=== PATIENT | female | born 1930 | race Caucasian/White ===

== ENCOUNTER 2019-03-08 12:40 | Inpatient (IN) ==
[2019-03-08] MEDS ORDERED: ACETAMINOPHEN 325 MG TABLET PO PRN (12:43)
[2019-03-08] MEDS ORDERED: ZALEPLON 5 MG CAPSULE PO PRN (12:43)
[2019-03-08] MEDS ORDERED: ONDANSETRON 4 MG/2 ML VIAL IV PRN (12:43)
[2019-03-08 14:50] LABS: Basophils # 0.1 10*3/uL (0.0-0.2); Basophils % 0.7 % (0.0-0.8); Eosinophils # 0.6 10*3/uL (0.0-0.87); Hematocrit 35.9 VOL% (35.7-47.0); Hemoglobin 11.4 GM/DL (12.0-16.0); Immature Granulocytes % 0.5 %; Immature Granulocytes Absolute 0.05 #; Lymphocytes # 1.3 10*3/uL (1.4-4.0); Lymphocytes % 12.8 % (21.3-54.2); Mean Corpuscular HGB Conc 31.8 GM/DL (32-36); Mean Corpuscular Volume 88.6 FL (87-102); Mean Platelet Volume 10.7 FL (9.6-12.0); Monocytes % 9.2 % (1.7-12.7); Neutrophils % 70.8 % (38.7-73.9); Platelet Count 185 T/CUMM (130-400); Red Blood Count 4.05 MC/CUMM (3.8-5.5); Red Cell Distribution Width 13.2 % (9.3-17.3)
[2019-03-08 15:02] LABS: Calcium 9.4 MG/DL (8.5-10.1); Osmolality,Calculated 282.5 MOS/KG (273-304)
[2019-03-08 15:13] LABS: Thyroid Stimulating Hormone 1.71 uIU/ml (0.358-3.74)
[2019-03-08] MEDS ORDERED: IBUPROFEN 800 MG TABLET PO PRN (15:59)
[2019-03-08] MEDS ORDERED: ENOXAPARIN 60 MG/0.6 ML SYRINGE SUBCUT ONE (16:05)
[2019-03-08 17:00] LABS: Apearance,Urine Slightly Hazy (Clear); Bacteria,Urine Occasional /HPF (Few); Bilirubin,Urine Negative (Negative); Blood, Urine Small mg/dL (Negative); Glucose,Urine (UA) Negative (Negative); Hyaline Casts,Urine 6 /LPF (0-3); Ketones,Urine Negative (Negative); Mucus,Urine Occasional /LPF (Occasional); Nitrite,Urine Positive (Negative); Protein,Urine Negative; RBC,Urine 2 /HPF (0-4); Squamous Epithelial Cell,Urine Occasional /HPF (0-10); Urine Color Yellow (Yellow); Urine Specific Gravity 1.012 (1.001-1.035); Urine Urobilinogen < 2.0 EU/DL (0.2-1.0); WBC,Urine 25 /HPF (0-6)
[2019-03-08] MEDS: SODIUM CHLORIDE 0.9% 1,000 ML IV SCH (17:17)
[2019-03-08] MEDS ORDERED: hydrALAZINE 20 MG/1 ML VIAL IV PRN (21:29)
[2019-03-08] MEDS: LEVOFLOXACIN 250 MG TABLET PO SCH (21:44)
[2019-03-08] MEDS: DOCUSATE SODIUM 100 MG CAPSULE PO PRN (21:44)
[2019-03-09] MEDS: SODIUM CHLORIDE 0.9% 1,000 ML IV SCH (03:25)
[2019-03-09 03:53] LABS: Basophils # 0.1 10*3/uL (0.0-0.2); Basophils % 0.7 % (0.0-0.8); Eosinophils # 0.4 10*3/uL (0.0-0.87); Eosinophils % 4.3 % (0.00-10.9); Hematocrit 36.9 VOL% (35.7-47.0); Immature Granulocytes % 0.4 %; Immature Granulocytes Absolute 0.04 #; Lymphocytes # 0.8 10*3/uL (1.4-4.0); Lymphocytes % 7.7 % (21.3-54.2); Mean Corpuscular HGB Conc 32.5 GM/DL (32-36); Mean Corpuscular Volume 86.8 FL (87-102); Mean Platelet Volume 10.8 FL (9.6-12.0); Monocytes % 7.5 % (1.7-12.7); Neutrophils % 79.4 % (38.7-73.9); Platelet Count 155 T/CUMM (130-400); Red Blood Count 4.25 MC/CUMM (3.8-5.5); Red Cell Distribution Width 13.2 % (9.3-17.3); White Blood Count 10.1 T/CUMM (4-12)
[2019-03-09 04:15] LABS: Calcium 9.3 MG/DL (8.5-10.1); Osmolality,Calculated 279.5 MOS/KG (273-304)
[2019-03-09] MEDS: MULTIVITAMIN (CENTRUM) TABLET PO SCH (08:53)
[2019-03-09] MEDS: ASPIRIN CHEW 81 MG TABLET PO SCH (08:53)
[2019-03-09] MEDS: OXYBUTYNIN 5 MG TABLET PO SCH (08:53)
[2019-03-09] MEDS: DOCUSATE SODIUM 100 MG CAPSULE PO PRN (08:53)
[2019-03-09] MEDS: PANTOPRAZOLE 40 MG TABLET PO SCH (08:54)
[2019-03-09] MEDS: ISOSORBIDE MONONITRATE 30 MG TABLET PO SCH (08:54)
[2019-03-09] MEDS: METOPROLOL SUCCINATE XL 25 MG TABLET PO SCH (08:54)
[2019-03-09] MEDS ORDERED: ALBUTEROL/IPRATROPIUM 3 ML NEB RESP TX PRN (09:53)
[2019-03-09] MEDS ORDERED: TUBERCULIN SKIN TEST 0.1 ML SYRINGE INTRADERM ONE (15:32)
[2019-03-09] MEDS: LEVOFLOXACIN 250 MG TABLET PO SCH (20:31)
[2019-03-10] MEDS ORDERED: LACTULOSE 20 GM/30 ML UDCUP PO PRN (07:40)
[2019-03-10] MEDS: ALBUTEROL/IPRATROPIUM 3 ML NEB RESP TX SCH ×5 (08:40→22:30)
[2019-03-10] MEDS ORDERED: MAGNESIUM SULF RIDER 2 GM in PREMIX 1 EACH IV ONE (08:47)
[2019-03-10] MEDS ORDERED: TISSUE ADHESIVE 1 EACH APPLICATOR TOP ONE (09:03)
[2019-03-10] MEDS ORDERED: LIDOCAINE 1%/EPI INJ 20 ML VIAL ONE (09:03)
[2019-03-10] MEDS: ASPIRIN CHEW 81 MG TABLET PO SCH (09:14)
[2019-03-10] MEDS: MULTIVITAMIN (CENTRUM) TABLET PO SCH (09:14)
[2019-03-10] MEDS: METOPROLOL SUCCINATE XL 25 MG TABLET PO SCH (09:14)
[2019-03-10] MEDS: ISOSORBIDE MONONITRATE 30 MG TABLET PO SCH (09:14)
[2019-03-10] MEDS: OXYBUTYNIN 5 MG TABLET PO SCH (09:14)
[2019-03-10] MEDS: PANTOPRAZOLE 40 MG TABLET PO SCH (09:14)
[2019-03-10] MEDS: POLYETHYLENE GLYCOL POWDER 17 GM PACK PO SCH (11:04)
[2019-03-10] MEDS: AMOXICILLIN/CLAV 500 MG TABLET PO SCH ×2 (14:59→22:08)
[2019-03-11] MEDS: ALBUTEROL/IPRATROPIUM 3 ML NEB RESP TX SCH ×3 (02:35→10:55)
[2019-03-11 05:58] LABS: Calcium 9.2 MG/DL (8.5-10.1); Osmolality,Calculated 282.7 MOS/KG (273-304)
[2019-03-11 08:05] VITALS: BP 142/74
[2019-03-11] MEDS ORDERED: AMPICILLIN 500 MG CAPSULE PO SCH (09:00)
[2019-03-11] MEDS: AMOXICILLIN/CLAV 500 MG TABLET PO SCH (09:27)
[2019-03-11] MEDS: OXYBUTYNIN 5 MG TABLET PO SCH (09:33)
[2019-03-11] MEDS: ISOSORBIDE MONONITRATE 30 MG TABLET PO SCH (09:33)
[2019-03-11] MEDS: PANTOPRAZOLE 40 MG TABLET PO SCH (09:33)
[2019-03-11] MEDS: ASPIRIN CHEW 81 MG TABLET PO SCH (09:33)
[2019-03-11] MEDS: METOPROLOL SUCCINATE XL 25 MG TABLET PO SCH (09:33)
[2019-03-11] MEDS: POLYETHYLENE GLYCOL POWDER 17 GM PACK PO SCH (09:33)
[2019-03-11] MEDS: MULTIVITAMIN (CENTRUM) TABLET PO SCH (09:33)
== END 2019-03-11 11:23 | DRG 261 ==
LOC: N.TELEN 13:47
PROVIDERS: ADMIT Internal Medicine Cardiovascular Disease; ATTEND Internal Medicine Cardiovascular Disease

== ENCOUNTER 2020-09-04 08:37 | Inpatient (IN) ==
[2020-09-04 10:02] LABS: Basophils % 0.1 % (0.0-0.8); Eosinophils # 0.1 10*3/uL (0.0-0.87); Eosinophils % 0.8 % (0.00-10.9); Hematocrit 29.7 VOL% (35.7-47.0); Hemoglobin 9.2 GM/DL (12.0-16.0); Immature Granulocytes % 1.1 %; Immature Granulocytes Absolute 0.19 #; Lymphocytes # 1.3 10*3/uL (1.4-4.0); Lymphocytes % 7.9 % (21.3-54.2); Mean Corpuscular Volume 78.6 FL (87-102); Mean Platelet Volume 9.6 FL (9.6-12.0); Monocytes % 8.1 % (1.7-12.7); Platelet Count 318 T/CUMM (130-400); Red Blood Count 3.78 MC/CUMM (3.8-5.5); Red Cell Distribution Width 15.8 % (9.3-17.3); White Blood Count 16.8 T/CUMM (4-12)
[2020-09-04] MEDS ORDERED: FAMOTIDINE 20 MG/2 ML VIAL IV STA (10:06)
[2020-09-04] MEDS ORDERED: DEXAMETHASONE 4 MG/1 ML VIAL IV STA (10:06)
[2020-09-04] MEDS ORDERED: AZITHROMYCIN INJ 500 MG in SODIUM CHLORIDE 0.9% 250 ML IV STA ×2 (10:06→10:28)
[2020-09-04] MEDS ORDERED: CETIRIZINE 10 MG TABLET PO STA (10:06)
[2020-09-04 10:12] LABS: INR 1.2; PT Patient Result 12.3 SECS (9.8-11.9); Partial Thromboplastin Time 22.5 SECS (23.9-33.8)
[2020-09-04 10:29] LABS: Albumin 2.5 G/DL (3.4-5.0); Bilirubin,Total 0.8 MG/DL (0.2-1.0); Calcium 9.2 MG/DL (8.5-10.1); Osmolality,Calculated 282.7 MOS/KG (273-304); Potassium 4.1 MMOL/L (3.5-5.1); Total Protein 5.8 G/DL (6.4-8.3)
[2020-09-04] MEDS ORDERED: MELATONIN 3 MG TABLET PO PRN (11:03)
[2020-09-04] MEDS ORDERED: guaiFENesin/DM ER 600-30 MG TABLET PO PRN (11:06)
[2020-09-04] MEDS ORDERED: CALCIUM CARBONATE CHEW 500 MG TABLET PO PRN (11:06)
[2020-09-04] MEDS ORDERED: GLUCAGON 1 MG VIAL IM PRN (11:06)
[2020-09-04] MEDS ORDERED: BISACODYL 5 MG TABLET PO PRN (11:06)
[2020-09-04] MEDS ORDERED: ONDANSETRON 4 MG/2 ML VIAL IV PRN (11:06)
[2020-09-04] MEDS ORDERED: hydrALAZINE 20 MG/1 ML VIAL IV PRN (11:06)
[2020-09-04] MEDS ORDERED: DEXTROSE 50% 25 GM/50 ML VIAL IV PRN (11:06)
[2020-09-04] MEDS ORDERED: SIMETHICONE CHEW 125 MG TABLET PO PRN (11:06)
[2020-09-04] MEDS ORDERED: guaiFENesin 200 MG/10 ML UDCUP PO PRN (15:46)
[2020-09-04] MEDS ORDERED: SODIUM CHLORIDE 0.9% 100 ML IV ONE (16:14)
[2020-09-04] MEDS: cefTRIAXone 1,000 MG in SYRINGE 1 EACH IV SCH (16:32)
[2020-09-04] MEDS: ENOXAPARIN 40 MG/0.4 ML SYRINGE SUBCUT SCH (21:23)
[2020-09-04] MEDS: RANOLAZINE 500 MG TABLET PO SCH (21:23)
[2020-09-04] MEDS: FAMOTIDINE 20 MG TABLET PO SCH (21:23)
[2020-09-05 06:03] LABS: Basophils % 0.2 % (0.0-0.8); Eosinophils # 0.1 10*3/uL (0.0-0.87); Eosinophils % 1.1 % (0.00-10.9); Hematocrit 29.3 VOL% (35.7-47.0); Hemoglobin 9.1 GM/DL (12.0-16.0); Immature Granulocytes % 0.9 %; Immature Granulocytes Absolute 0.12 #; Lymphocytes # 0.9 10*3/uL (1.4-4.0); Lymphocytes % 7.4 % (21.3-54.2); Mean Corpuscular HGB Conc 31.1 GM/DL (32-36); Mean Corpuscular Volume 77.9 FL (87-102); Mean Platelet Volume 9.8 FL (9.6-12.0); Monocytes % 9.3 % (1.7-12.7); Neutrophils % 81.1 % (38.7-73.9); Platelet Count 283 T/CUMM (130-400); Red Blood Count 3.76 MC/CUMM (3.8-5.5); Red Cell Distribution Width 15.9 % (9.3-17.3); White Blood Count 12.7 T/CUMM (4-12)
[2020-09-05 06:29] LABS: Thyroid Stimulating Hormone 0.972 uIU/ml (0.358-3.74)
[2020-09-05] MEDS: OXYBUTYNIN 5 MG TABLET PO SCH (08:47)
[2020-09-05] MEDS: ISOSORBIDE MONONITRATE 60 MG TABLET PO SCH (08:47)
[2020-09-05] MEDS: ASPIRIN CHEW 81 MG TABLET PO SCH (08:47)
[2020-09-05] MEDS: RANOLAZINE 500 MG TABLET PO SCH ×2 (08:47→21:49)
[2020-09-05] MEDS: SENNA 8.6 MG TABLET PO SCH (08:48)
[2020-09-05] MEDS: DEXAMETHASONE 4 MG/1 ML VIAL IV SCH (08:48)
[2020-09-05] MEDS: AZITHROMYCIN 250 MG TABLET PO SCH (08:48)
[2020-09-05] MEDS: ZINC GLUCONATE 50 MG TABLET PO SCH (10:20)
[2020-09-05] MEDS: FAMOTIDINE 20 MG TABLET PO SCH ×2 (10:20→21:49)
[2020-09-05] MEDS: cefTRIAXone 1,000 MG in SYRINGE 1 EACH IV SCH (16:04)
[2020-09-05] MEDS: ENOXAPARIN 40 MG/0.4 ML SYRINGE SUBCUT SCH (21:48)
[2020-09-06 05:25] LABS: Basophils % 0.1 % (0.0-0.8); Hematocrit 27.8 VOL% (35.7-47.0); Hemoglobin 8.3 GM/DL (12.0-16.0); Immature Granulocytes % 0.9 %; Immature Granulocytes Absolute 0.09 #; Lymphocytes # 0.5 10*3/uL (1.4-4.0); Lymphocytes % 4.6 % (21.3-54.2); Mean Corpuscular HGB Conc 29.9 GM/DL (32-36); Mean Corpuscular Volume 81.3 FL (87-102); Mean Platelet Volume 9.7 FL (9.6-12.0); Monocytes % 8.2 % (1.7-12.7); Neutrophils % 86.2 % (38.7-73.9); Platelet Count 282 T/CUMM (130-400); Red Blood Count 3.42 MC/CUMM (3.8-5.5); Red Cell Distribution Width 15.9 % (9.3-17.3); White Blood Count 10.2 T/CUMM (4-12)
[2020-09-06 05:51] LABS: Calcium 9.1 MG/DL (8.5-10.1); Osmolality,Calculated 288.4 MOS/KG (273-304)
[2020-09-06 05:56] LABS: Hypochromasia 1+; Lymphocytes 4 % (20-55); Microcytosis 1+; Ovalocytes Slight; Platelet Estimate Adequate; Segmented Neutrophils 87 % (50-85); Total Cells Counted 100
[2020-09-06] MEDS: AZITHROMYCIN 250 MG TABLET PO SCH (08:34)
[2020-09-06] MEDS: ASPIRIN CHEW 81 MG TABLET PO SCH (08:34)
[2020-09-06] MEDS: SENNA 8.6 MG TABLET PO SCH (08:34)
[2020-09-06] MEDS: RANOLAZINE 500 MG TABLET PO SCH (08:34)
[2020-09-06] MEDS: ZINC GLUCONATE 50 MG TABLET PO SCH (08:34)
[2020-09-06] MEDS: FAMOTIDINE 20 MG TABLET PO SCH (08:34)
[2020-09-06] MEDS: ISOSORBIDE MONONITRATE 60 MG TABLET PO SCH (08:34)
[2020-09-06] MEDS: OXYBUTYNIN 5 MG TABLET PO SCH (08:34)
[2020-09-06] MEDS: DEXAMETHASONE 4 MG/1 ML VIAL IV SCH (08:35)
[2020-09-06 11:52] VITALS: BP 119/69
== END 2020-09-06 12:41 | disposition home health service (06) | DRG 177 ==
LOC: N.ED 08:37 → N.EDINP 11:06 → N.2E 22:02
PROVIDERS: ADMIT Internal Medicine; ATTEND Internal Medicine

== ENCOUNTER 2020-10-23 07:28 | Inpatient (IN) ==
[2020-10-23] MEDS ORDERED: LEVOFLOXACIN INJ 500 MG in PREMIX 1 EACH IV STA (07:52)
[2020-10-23] MEDS ORDERED: SODIUM CHLORIDE 0.9% 500 ML IV STA (07:52)
[2020-10-23] MEDS ORDERED: CLINDAMYCIN INJ 600 MG in PREMIX 1 EACH IV STA (07:52)
[2020-10-23] MEDS ORDERED: ALBUTEROL/IPRATROPIUM 3 ML NEB RESP TX STA (07:52)
[2020-10-23 08:05] LABS: Basophils # 0.1 10*3/uL (0.0-0.2); Basophils % 0.4 % (0.0-0.8); Eosinophils % 0.2 % (0.00-10.9); Hematocrit 31.6 VOL% (35.7-47.0); Hemoglobin 9.2 GM/DL (12.0-16.0); Immature Granulocytes % 0.7 %; Immature Granulocytes Absolute 0.11 #; Lymphocytes # 0.6 10*3/uL (1.4-4.0); Lymphocytes % 3.8 % (21.3-54.2); Mean Corpuscular HGB Conc 29.1 GM/DL (32-36); Mean Corpuscular Volume 78.8 FL (87-102); Mean Platelet Volume 9.2 FL (9.6-12.0); Monocytes % 9.4 % (1.7-12.7); Neutrophils % 85.5 % (38.7-73.9); Platelet Count 478 T/CUMM (130-400); Red Blood Count 4.01 MC/CUMM (3.8-5.5); Red Cell Distribution Width 17.7 % (9.3-17.3); White Blood Count 16.5 T/CUMM (4-12)
[2020-10-23 08:17] LABS: INR 1.4; PT Patient Result 14.9 SECS (9.8-11.9); Partial Thromboplastin Time 27.5 SECS (23.9-33.8)
[2020-10-23 08:24] LABS: Eosinophils 2 % (0-10); Hypochromasia 1+; Lymphocytes 4 % (20-55); Microcytosis 1+; Ovalocytes Slight; Platelet Estimate Adequate; Segmented Neutrophils 81 % (50-85); Total Cells Counted 100
[2020-10-23 08:33] LABS: Albumin 2.5 G/DL (3.4-5.0); Bilirubin,Total 1.1 MG/DL (0.2-1.0); Calcium 9.7 MG/DL (8.5-10.1); Osmolality,Calculated 261.8 MOS/KG (273-304); Potassium 4.1 MMOL/L (3.5-5.1); Total Protein 6.7 G/DL (6.4-8.3)
[2020-10-23 08:43] LABS: Bilirubin,Urine Negative (Negative); Blood, Urine Negative (Negative); Glucose,Urine (UA) Negative (Negative); Ketones,Urine 20 mg/dL (Negative); Mucus,Urine Few /LPF (Occasional); Nitrite,Urine Negative (Negative); Protein,Urine Negative; RBC,Urine 2 /HPF (0-4); Squamous Epithelial Cell,Urine Occasional /HPF (0-10); Urine Appearance CLEAR (Clear); Urine Color Yellow (Yellow); Urine Specific Gravity 1.013 (1.001-1.035); Urine Urobilinogen < 2.0 EU/DL (0.2-1.0); WBC,Urine 17 /HPF (0-6)
[2020-10-23] MEDS ORDERED: ONDANSETRON 4 MG/2 ML VIAL IV PRN (10:59)
[2020-10-23] MEDS ORDERED: GLUCAGON 1 MG VIAL IM PRN (10:59)
[2020-10-23] MEDS ORDERED: DEXTROSE 50% 25 GM/50 ML VIAL IV PRN (10:59)
[2020-10-23] MEDS ORDERED: DEXTROSE 5% NACL 0.45% 1,000 ML IV SCH (11:00)
[2020-10-23] MEDS ORDERED: LEVOFLOXACIN INJ 500 MG in PREMIX 1 EACH IV SCH (11:30)
[2020-10-23 11:51] LABS: ABG Base Excess 3.8 MMOL/L (-2.5-2.5); ABG HCO3 27.8 MMOL/L (20-26); ABG Oxygen Saturation 96.8 % (95-100); ABG PCO2 43.8 MM HG (35-48); ABG PH 7.423 (7.35-7.45); ABG PO2 83.7 MM HG (80-95); ABG TCO2 26.6 MMOL/L (23-27); Allen Test Positive; Pt O2 Delivery Device Other
[2020-10-23] MEDS: ENOXAPARIN 30 MG/0.3 ML SYRINGE SUBCUT SCH (12:04)
[2020-10-23] MEDS ORDERED: CLINDAMYCIN INJ 600 MG in PREMIX 1 EACH IV SCH (12:30)
[2020-10-23] MEDS: DEXAMETHASONE 4 MG/1 ML VIAL IV SCH (13:55)
[2020-10-23] MEDS: SODIUM CHLORIDE 0.9% 1,000 ML IV SCH ×2 (14:45→22:26)
[2020-10-23] MEDS: CLINDAMYCIN INJ 600 MG in PREMIX 1 EACH IV SCH ×2 (14:45→22:27)
[2020-10-23] MEDS ORDERED: MAGNESIUM SULF RIDER 4 GM in PREMIX 1 EACH IV ONE (15:00)
[2020-10-23] MEDS: ALBUTEROL/IPRATROPIUM 3 ML NEB RESP TX SCH (19:59)
[2020-10-24] MEDS: ALBUTEROL/IPRATROPIUM 3 ML NEB RESP TX SCH ×4 (01:29→20:55)
[2020-10-24] MEDS: CLINDAMYCIN INJ 600 MG in PREMIX 1 EACH IV SCH ×3 (05:13→21:08)
[2020-10-24 06:53] LABS: Calcium 9.2 MG/DL (8.5-10.1); Osmolality,Calculated 278.7 MOS/KG (273-304); Potassium 3.7 MMOL/L (3.5-5.1)
[2020-10-24 06:54] LABS: Basophils % 0.1 % (0.0-0.8); Hematocrit 28.3 VOL% (35.7-47.0); Hemoglobin 8.1 GM/DL (12.0-16.0); Immature Granulocytes % 0.6 %; Immature Granulocytes Absolute 0.06 #; Lymphocytes # 0.5 10*3/uL (1.4-4.0); Lymphocytes % 4.8 % (21.3-54.2); Mean Corpuscular HGB Conc 28.6 GM/DL (32-36); Mean Corpuscular Volume 79.9 FL (87-102); Mean Platelet Volume 9.2 FL (9.6-12.0); Monocytes % 8.2 % (1.7-12.7); Neutrophils % 86.3 % (38.7-73.9); Platelet Count 430 T/CUMM (130-400); Red Blood Count 3.54 MC/CUMM (3.8-5.5); Red Cell Distribution Width 17.8 % (9.3-17.3)
[2020-10-24] MEDS ORDERED: traMADol 50 MG TABLET PO PRN (07:10)
[2020-10-24 07:14] LABS: Eosinophils 1 % (0-10); Hypochromasia 2+; Lymphocytes 2 % (20-55); Microcytosis 1+; Ovalocytes Slight; Platelet Estimate Adequate; Segmented Neutrophils 87 % (50-85); Total Cells Counted 100
[2020-10-24] MEDS: SODIUM CHLORIDE 0.9% 1,000 ML IV SCH ×2 (07:25→18:38)
[2020-10-24 08:42] LABS: % Iron Saturation 3.6 % (18-50); Ferritin 31.4 ng/ml (8-252)
[2020-10-24] MEDS: DEXAMETHASONE 4 MG/1 ML VIAL IV SCH (09:36)
[2020-10-24] MEDS: LEVOFLOXACIN INJ 500 MG in PREMIX 1 EACH IV SCH (09:41)
[2020-10-24] MEDS ORDERED: SKIN HEALING OINT (AQUAPHOR) 50 GM TUBE TOP PRN (10:21)
[2020-10-24] MEDS: FERROUS SULFATE 325 MG TABLET PO SCH ×3 (12:00→18:39)
[2020-10-24] MEDS: MULTIVITAMIN (CENTRUM) TABLET PO SCH (12:43)
[2020-10-24] MEDS: ASPIRIN CHEW 81 MG TABLET PO SCH (12:43)
[2020-10-24] MEDS: OXYBUTYNIN 5 MG TABLET PO SCH (12:43)
[2020-10-24] MEDS: DOCUSATE SODIUM 100 MG CAPSULE PO SCH (12:43)
[2020-10-24] MEDS: ISOSORBIDE MONONITRATE 60 MG TABLET PO SCH (12:44)
[2020-10-24] MEDS: RANOLAZINE 500 MG TABLET PO SCH ×2 (12:44→21:08)
[2020-10-24] MEDS: CETIRIZINE 5 MG TABLET PO SCH (12:45)
[2020-10-24] MEDS: ZINC GLUCONATE 50 MG TABLET PO SCH (12:45)
[2020-10-24] MEDS: ENOXAPARIN 30 MG/0.3 ML SYRINGE SUBCUT SCH (13:01)
[2020-10-24] MEDS ORDERED: TUBERCULIN SKIN TEST 0.1 ML SYRINGE INTRADERM ONE (15:56)
[2020-10-25] MEDS: ALBUTEROL/IPRATROPIUM 3 ML NEB RESP TX SCH ×5 (02:01→23:16)
[2020-10-25] MEDS: CLINDAMYCIN INJ 600 MG in PREMIX 1 EACH IV SCH ×3 (05:22→22:32)
[2020-10-25 05:47] LABS: Basophils % 0.1 % (0.0-0.8); Eosinophils % 0.1 % (0.00-10.9); Hematocrit 26.2 VOL% (35.7-47.0); Hemoglobin 7.8 GM/DL (12.0-16.0); Immature Granulocytes % 0.7 %; Immature Granulocytes Absolute 0.09 #; Lymphocytes # 0.8 10*3/uL (1.4-4.0); Lymphocytes % 5.6 % (21.3-54.2); Mean Corpuscular HGB Conc 29.8 GM/DL (32-36); Mean Corpuscular Volume 78.2 FL (87-102); Mean Platelet Volume 9.2 FL (9.6-12.0); Monocytes % 8.9 % (1.7-12.7); Neutrophils % 84.6 % (38.7-73.9); Platelet Count 428 T/CUMM (130-400); Red Blood Count 3.35 MC/CUMM (3.8-5.5); Red Cell Distribution Width 17.8 % (9.3-17.3); White Blood Count 13.7 T/CUMM (4-12)
[2020-10-25 06:08] LABS: Calcium 9.4 MG/DL (8.5-10.1); Osmolality,Calculated 281.4 MOS/KG (273-304); Potassium 3.4 MMOL/L (3.5-5.1)
[2020-10-25 06:38] LABS: Calcium 8.9 MG/DL (8.5-10.1); Osmolality,Calculated 279.5 MOS/KG (273-304); Potassium 3.4 MMOL/L (3.5-5.1)
[2020-10-25] MEDS: SODIUM CHLORIDE 0.9% 1,000 ML IV SCH ×2 (07:03→18:55)
[2020-10-25] MEDS: LEVOFLOXACIN INJ 500 MG in PREMIX 1 EACH IV SCH (09:28)
[2020-10-25] MEDS: MULTIVITAMIN (CENTRUM) TABLET PO SCH (09:29)
[2020-10-25] MEDS: DOCUSATE SODIUM 100 MG CAPSULE PO SCH (09:29)
[2020-10-25] MEDS: ASPIRIN CHEW 81 MG TABLET PO SCH (09:29)
[2020-10-25] MEDS: RANOLAZINE 500 MG TABLET PO SCH ×2 (09:29→22:32)
[2020-10-25] MEDS: ZINC GLUCONATE 50 MG TABLET PO SCH (09:29)
[2020-10-25] MEDS: CETIRIZINE 5 MG TABLET PO SCH (09:29)
[2020-10-25] MEDS: FERROUS SULFATE 325 MG TABLET PO SCH ×3 (09:30→16:20)
[2020-10-25] MEDS: ISOSORBIDE MONONITRATE 60 MG TABLET PO SCH (09:30)
[2020-10-25] MEDS: OXYBUTYNIN 5 MG TABLET PO SCH (09:30)
[2020-10-25] MEDS: DEXAMETHASONE 4 MG/1 ML VIAL IV SCH (09:32)
[2020-10-25] MEDS: ENOXAPARIN 30 MG/0.3 ML SYRINGE SUBCUT SCH (11:42)
[2020-10-25] MEDS: POTASSIUM CHLORIDE 20 MEQ/15 ML UDCUP PO SCH ×2 (13:19→16:20)
[2020-10-25] MEDS ORDERED: methylPREDNISolone SOD SUC 125 MG/2 ML VIAL IV ONE (16:04)
[2020-10-25] MEDS ORDERED: FUROSEMIDE 20 MG/2 ML VIAL IV ONE (16:04)
[2020-10-25] MEDS ORDERED: methylPREDNISolone SOD SUC 40 MG/1 ML VIAL ONE (16:08)
[2020-10-25 16:37] LABS: ABG Base Excess 2.4 MMOL/L (-2.5-2.5); ABG HCO3 26.5 MMOL/L (20-26); ABG Oxygen Saturation 91.5 % (95-100); ABG PCO2 44.7 MM HG (35-48); ABG PH 7.399 (7.35-7.45); ABG PO2 66.6 MM HG (80-95); ABG TCO2 25.6 MMOL/L (23-27); Allen Test Positive; Pt O2 Delivery Device Other
[2020-10-25] MEDS ORDERED: ALBUTEROL/IPRATROPIUM 3 ML NEB RESP TX PRN (16:37)
[2020-10-25 17:18] LABS: Calcium 9.8 MG/DL (8.5-10.1); Osmolality,Calculated 282.5 MOS/KG (273-304); Potassium 3.4 MMOL/L (3.5-5.1)
[2020-10-26] MEDS: ALBUTEROL/IPRATROPIUM 3 ML NEB RESP TX SCH ×5 (03:04→19:35)
[2020-10-26] MEDS: CLINDAMYCIN INJ 600 MG in PREMIX 1 EACH IV SCH ×4 (05:24→23:02)
[2020-10-26] MEDS: DEXAMETHASONE 4 MG/1 ML VIAL IV SCH (08:48)
[2020-10-26] MEDS: FERROUS SULFATE 325 MG TABLET PO SCH ×3 (09:33→18:35)
[2020-10-26] MEDS: LEVOFLOXACIN INJ 500 MG in PREMIX 1 EACH IV SCH (09:33)
[2020-10-26] MEDS: ASPIRIN CHEW 81 MG TABLET PO SCH (09:33)
[2020-10-26] MEDS: MULTIVITAMIN (CENTRUM) TABLET PO SCH (09:33)
[2020-10-26] MEDS: OXYBUTYNIN 5 MG TABLET PO SCH (09:34)
[2020-10-26] MEDS: DOCUSATE SODIUM 100 MG CAPSULE PO SCH (09:34)
[2020-10-26] MEDS: CETIRIZINE 5 MG TABLET PO SCH (09:34)
[2020-10-26] MEDS: RANOLAZINE 500 MG TABLET PO SCH ×2 (09:34→20:26)
[2020-10-26] MEDS: ZINC GLUCONATE 50 MG TABLET PO SCH (09:34)
[2020-10-26] MEDS ORDERED: FERRIC GLUCONATE COMPLEX 62.5 MG in SODIUM CHLORIDE 0.9% 100 ML IV ONE (14:02)
[2020-10-26] MEDS: ENOXAPARIN 30 MG/0.3 ML SYRINGE SUBCUT SCH (15:27)
[2020-10-26] MEDS: PANTOPRAZOLE 40 MG VIAL IV SCH (15:27)
[2020-10-26 15:28] LABS: Folate 19.9 NG/ML (5.38-24.0); Vitamin B12 > 2000 PG/ML (211-911)
[2020-10-26] MEDS: ISOSORBIDE MONONITRATE 60 MG TABLET PO SCH (15:29)
[2020-10-26] MEDS: POTASSIUM CHLORIDE INJ 10 MEQ in DEXTROSE 5% 1,000 ML IV SCH (16:40)
[2020-10-27] MEDS: ALBUTEROL/IPRATROPIUM 3 ML NEB RESP TX SCH ×7 (00:17→23:54)
[2020-10-27 05:36] LABS: Basophils % 0.1 % (0.0-0.8); Eosinophils # 0.1 10*3/uL (0.0-0.87); Eosinophils % 0.3 % (0.00-10.9); Hematocrit 28.9 VOL% (35.7-47.0); Hemoglobin 8.4 GM/DL (12.0-16.0); Immature Granulocytes % 0.5 %; Immature Granulocytes Absolute 0.08 #; Lymphocytes # 1.1 10*3/uL (1.4-4.0); Lymphocytes % 7.1 % (21.3-54.2); Mean Corpuscular HGB Conc 29.1 GM/DL (32-36); Mean Corpuscular Volume 78.7 FL (87-102); Monocytes % 11.7 % (1.7-12.7); Neutrophils % 80.3 % (38.7-73.9); Platelet Count 474 T/CUMM (130-400); Red Blood Count 3.67 MC/CUMM (3.8-5.5); Red Cell Distribution Width 17.9 % (9.3-17.3); White Blood Count 15.8 T/CUMM (4-12)
[2020-10-27] MEDS: CLINDAMYCIN INJ 600 MG in PREMIX 1 EACH IV SCH ×3 (05:40→22:33)
[2020-10-27 05:52] LABS: Calcium 9.8 MG/DL (8.5-10.1); Osmolality,Calculated 278.7 MOS/KG (273-304); Potassium 3.5 MMOL/L (3.5-5.1)
[2020-10-27 05:56] LABS: Risk Ratio 3.29; VLDL CHOLESTEROL 24.8 MG/DL
[2020-10-27] MEDS: FERROUS SULFATE 325 MG TABLET PO SCH ×3 (08:59→17:22)
[2020-10-27] MEDS: ASPIRIN CHEW 81 MG TABLET PO SCH (08:59)
[2020-10-27] MEDS: MULTIVITAMIN (CENTRUM) TABLET PO SCH (08:59)
[2020-10-27] MEDS: PANTOPRAZOLE 40 MG VIAL IV SCH (09:00)
[2020-10-27] MEDS: LEVOFLOXACIN INJ 500 MG in PREMIX 1 EACH IV SCH (09:00)
[2020-10-27] MEDS: DEXAMETHASONE 4 MG/1 ML VIAL IV SCH (09:00)
[2020-10-27] MEDS: OXYBUTYNIN 5 MG TABLET PO SCH (09:00)
[2020-10-27] MEDS: ISOSORBIDE MONONITRATE 60 MG TABLET PO SCH (09:00)
[2020-10-27] MEDS: DOCUSATE SODIUM 100 MG CAPSULE PO SCH (09:00)
[2020-10-27] MEDS: ZINC GLUCONATE 50 MG TABLET PO SCH (09:01)
[2020-10-27] MEDS: RANOLAZINE 500 MG TABLET PO SCH ×2 (09:01→21:23)
[2020-10-27] MEDS: CETIRIZINE 5 MG TABLET PO SCH (09:01)
[2020-10-27] MEDS: ACETAMINOPHEN 650 MG SUPP RECTAL PRN (10:51)
[2020-10-27] MEDS: ENOXAPARIN 30 MG/0.3 ML SYRINGE SUBCUT SCH (10:51)
[2020-10-27] MEDS: POTASSIUM CHLORIDE INJ 10 MEQ in DEXTROSE 5% 1,000 ML IV SCH (10:51)
[2020-10-27] MEDS: TRACE ELEMENTS (5) 1 ML, MULTIVITAMIN INJ 10 ML in AMINO ACIDS/DEXT/LYTES 4.25-5% 2,000 ML IV SCH (18:05)
[2020-10-28] MEDS: ACETAMINOPHEN 650 MG SUPP RECTAL PRN (01:28)
[2020-10-28] MEDS: ALBUTEROL/IPRATROPIUM 3 ML NEB RESP TX SCH ×6 (03:53→23:20)
[2020-10-28] MEDS: CLINDAMYCIN INJ 600 MG in PREMIX 1 EACH IV SCH ×3 (06:31→22:39)
[2020-10-28] MEDS: PANTOPRAZOLE 40 MG VIAL IV SCH (09:23)
[2020-10-28] MEDS: DEXAMETHASONE 4 MG/1 ML VIAL IV SCH (09:26)
[2020-10-28] MEDS: FERROUS SULFATE 325 MG TABLET PO SCH ×3 (09:34→19:08)
[2020-10-28] MEDS: ASPIRIN CHEW 81 MG TABLET PO SCH (09:34)
[2020-10-28] MEDS: MULTIVITAMIN (CENTRUM) TABLET PO SCH (09:35)
[2020-10-28] MEDS: ISOSORBIDE MONONITRATE 60 MG TABLET PO SCH (09:36)
[2020-10-28] MEDS: DOCUSATE SODIUM 100 MG CAPSULE PO SCH (09:36)
[2020-10-28] MEDS: OXYBUTYNIN 5 MG TABLET PO SCH (09:36)
[2020-10-28] MEDS: RANOLAZINE 500 MG TABLET PO SCH ×2 (11:21→21:27)
[2020-10-28] MEDS: ZINC GLUCONATE 50 MG TABLET PO SCH (11:30)
[2020-10-28] MEDS: CETIRIZINE 5 MG TABLET PO SCH (11:30)
[2020-10-28] MEDS: ENOXAPARIN 30 MG/0.3 ML SYRINGE SUBCUT SCH (13:22)
[2020-10-28] MEDS: FERRIC GLUCONATE COMPLEX 62.5 MG in SODIUM CHLORIDE 0.9% 100 ML IV SCH (13:22)
[2020-10-28] MEDS ORDERED: MAGNESIUM SULF RIDER 2 GM in PREMIX 1 EACH IV ONE (14:59)
[2020-10-28] MEDS: amLODIPine 5 MG TABLET PO SCH (16:49)
[2020-10-28] MEDS: POTASSIUM CHLORIDE INJ 10 MEQ in DEXTROSE 5% 1,000 ML IV SCH (16:58)
[2020-10-28] MEDS: LEVOFLOXACIN INJ 500 MG in PREMIX 1 EACH IV SCH (17:00)
[2020-10-28] MEDS: FAT EMULSION 20% 250 ML IV SCH (19:17)
[2020-10-28] MEDS: TRACE ELEMENTS (5) 1 ML, MULTIVITAMIN INJ 10 ML in AMINO ACIDS/DEXT/LYTES 4.25-5% 2,000 ML IV SCH (19:19)
[2020-10-29] MEDS: ALBUTEROL/IPRATROPIUM 3 ML NEB RESP TX SCH ×6 (02:35→23:57)
[2020-10-29] MEDS: POTASSIUM CHLORIDE INJ 10 MEQ in DEXTROSE 5% 1,000 ML IV SCH (02:48)
[2020-10-29] MEDS: CLINDAMYCIN INJ 600 MG in PREMIX 1 EACH IV SCH ×3 (05:27→21:39)
[2020-10-29 06:26] LABS: Basophils % 0.1 % (0.0-0.8); Eosinophils # 0.1 10*3/uL (0.0-0.87); Eosinophils % 0.5 % (0.00-10.9); Hematocrit 29.2 VOL% (35.7-47.0); Hemoglobin 8.4 GM/DL (12.0-16.0); Immature Granulocytes % 1.5 %; Immature Granulocytes Absolute 0.33 #; Lymphocytes # 0.9 10*3/uL (1.4-4.0); Lymphocytes % 3.9 % (21.3-54.2); Mean Corpuscular HGB Conc 28.8 GM/DL (32-36); Mean Corpuscular Volume 77.7 FL (87-102); Mean Platelet Volume 9.6 FL (9.6-12.0); Monocytes % 8.2 % (1.7-12.7); Neutrophils % 85.8 % (38.7-73.9); Platelet Count 431 T/CUMM (130-400); Red Blood Count 3.76 MC/CUMM (3.8-5.5); Red Cell Distribution Width 18.1 % (9.3-17.3)
[2020-10-29] MEDS ORDERED: PROMETHAZINE 25 MG/1 ML VIAL IM ONE (06:30)
[2020-10-29] MEDS ORDERED: MEPERIDINE 50 MG/1 ML VIAL IM ONE (06:30)
[2020-10-29 06:36] LABS: Lymphocytes 3 % (20-55); Platelet Estimate Adequate; Segmented Neutrophils 88 % (50-85); Total Cells Counted 100
[2020-10-29 06:37] LABS: Hypochromasia 1+; Microcytosis 1+
[2020-10-29 06:38] LABS: Calcium 9.6 MG/DL (8.5-10.1); Osmolality,Calculated 278.7 MOS/KG (273-304); Potassium 3.6 MMOL/L (3.5-5.1)
[2020-10-29 06:41] LABS: Calcium 9.8 MG/DL (8.5-10.1); Osmolality,Calculated 276.8 MOS/KG (273-304); Potassium 3.7 MMOL/L (3.5-5.1)
[2020-10-29] MEDS ORDERED: MIDAZOLAM 2 MG/2 ML VIAL IV ONE (07:00)
[2020-10-29] MEDS ORDERED: LIDOCAINE 1% 20 ML VIAL MISC INJ ONE (07:00)
[2020-10-29] MEDS ORDERED: LIDOCAINE 2% VISCOUS 100 ML BOTTLE SWISH/SPIT ONE (07:00)
[2020-10-29] MEDS ORDERED: LIDOCAINE 2% 20 ML VIAL RESP TX ONE (07:00)
[2020-10-29] MEDS: ASPIRIN CHEW 81 MG TABLET PO SCH (08:43)
[2020-10-29] MEDS: FERROUS SULFATE 325 MG TABLET PO SCH ×3 (08:43→16:47)
[2020-10-29] MEDS: MULTIVITAMIN (CENTRUM) TABLET PO SCH (08:43)
[2020-10-29] MEDS: RANOLAZINE 500 MG TABLET PO SCH ×2 (08:44→21:37)
[2020-10-29] MEDS: CETIRIZINE 5 MG TABLET PO SCH (08:44)
[2020-10-29] MEDS: amLODIPine 5 MG TABLET PO SCH (08:44)
[2020-10-29] MEDS: ZINC GLUCONATE 50 MG TABLET PO SCH (08:44)
[2020-10-29] MEDS: OXYBUTYNIN 5 MG TABLET PO SCH (08:44)
[2020-10-29] MEDS: ISOSORBIDE MONONITRATE 60 MG TABLET PO SCH (08:44)
[2020-10-29] MEDS: DOCUSATE SODIUM 100 MG CAPSULE PO SCH (08:44)
[2020-10-29] MEDS: PANTOPRAZOLE 40 MG VIAL IV SCH (09:17)
[2020-10-29] MEDS: FERRIC GLUCONATE COMPLEX 62.5 MG in SODIUM CHLORIDE 0.9% 100 ML IV SCH (09:17)
[2020-10-29] MEDS: DEXAMETHASONE 4 MG/1 ML VIAL IV SCH (09:18)
[2020-10-29] MEDS: FLUCONAZOLE INJ 200 MG in PREMIX 1 EACH IV SCH (10:30)
[2020-10-29] MEDS: ENOXAPARIN 30 MG/0.3 ML SYRINGE SUBCUT SCH (11:07)
[2020-10-29] MEDS: hydrALAZINE 20 MG/1 ML VIAL IV PRN (12:41)
[2020-10-29 13:47] LABS: % Iron Saturation 8.1 % (18-50)
[2020-10-29] MEDS: TRACE ELEMENTS (5) 1 ML, MULTIVITAMIN INJ 10 ML in AMINO ACIDS/DEXT/LYTES 4.25-5% 2,000 ML IV SCH (17:03)
[2020-10-30] MEDS: ALBUTEROL/IPRATROPIUM 3 ML NEB RESP TX SCH ×6 (04:00→23:14)
[2020-10-30] MEDS: CLINDAMYCIN INJ 600 MG in PREMIX 1 EACH IV SCH ×3 (05:50→21:22)
[2020-10-30] MEDS: ASPIRIN CHEW 81 MG TABLET PO SCH (08:06)
[2020-10-30] MEDS: OXYBUTYNIN 5 MG TABLET PO SCH (08:06)
[2020-10-30] MEDS: FERROUS SULFATE 325 MG TABLET PO SCH ×3 (08:06→16:27)
[2020-10-30] MEDS: CETIRIZINE 5 MG TABLET PO SCH (08:06)
[2020-10-30] MEDS: MULTIVITAMIN (CENTRUM) TABLET PO SCH (08:06)
[2020-10-30] MEDS: ZINC GLUCONATE 50 MG TABLET PO SCH (08:06)
[2020-10-30] MEDS: DOCUSATE SODIUM 100 MG CAPSULE PO SCH (08:06)
[2020-10-30] MEDS: RANOLAZINE 500 MG TABLET PO SCH ×2 (08:06→23:40)
[2020-10-30] MEDS: PANTOPRAZOLE 40 MG VIAL IV SCH (09:28)
[2020-10-30] MEDS: FLUCONAZOLE INJ 200 MG in PREMIX 1 EACH IV SCH (09:34)
[2020-10-30] MEDS: DEXAMETHASONE 4 MG/1 ML VIAL IV SCH (09:34)
[2020-10-30] MEDS: FAT EMULSION 20% 250 ML IV SCH (11:29)
[2020-10-30] MEDS: ENOXAPARIN 30 MG/0.3 ML SYRINGE SUBCUT SCH (11:29)
[2020-10-30 12:02] LABS: Basophils % 0.1 % (0.0-0.8); Eosinophils % 0.2 % (0.00-10.9); Hematocrit 29.3 VOL% (35.7-47.0); Hemoglobin 8.3 GM/DL (12.0-16.0); Immature Granulocytes % 0.8 %; Immature Granulocytes Absolute 0.16 #; Lymphocytes # 0.5 10*3/uL (1.4-4.0); Lymphocytes % 2.5 % (21.3-54.2); Mean Corpuscular HGB Conc 28.3 GM/DL (32-36); Mean Corpuscular Volume 80.1 FL (87-102); Mean Platelet Volume 9.1 FL (9.6-12.0); Monocytes % 4.8 % (1.7-12.7); Neutrophils % 91.6 % (38.7-73.9); Platelet Count 404 T/CUMM (130-400); Red Blood Count 3.66 MC/CUMM (3.8-5.5); Red Cell Distribution Width 18.1 % (9.3-17.3); White Blood Count 19.7 T/CUMM (4-12)
[2020-10-30 12:21] LABS: Calcium 10.4 MG/DL (8.5-10.1); Potassium 4.5 MMOL/L (3.5-5.1)
[2020-10-30 12:22] LABS: Lymphocytes 6 % (20-55); Segmented Neutrophils 93 % (50-85); Total Cells Counted 100
[2020-10-30 12:23] LABS: Hypochromasia 2+; Polychromasia Slight
[2020-10-30 12:25] LABS: Ovalocytes 1+; Stomatocytes Few
[2020-10-30] MEDS ORDERED: FUROSEMIDE 40 MG/4 ML VIAL IV ONE (15:01)
[2020-10-30] MEDS: TRACE ELEMENTS (5) 1 ML, MULTIVITAMIN INJ 10 ML in AMINO ACIDS/DEXT/LYTES 4.25-5% 2,000 ML IV SCH (17:50)
[2020-10-31] MEDS: ALBUTEROL/IPRATROPIUM 3 ML NEB RESP TX SCH ×6 (02:49→23:15)
[2020-10-31] MEDS: CLINDAMYCIN INJ 600 MG in PREMIX 1 EACH IV SCH ×2 (05:50→14:45)
[2020-10-31 07:20] LABS: Calcium 10.3 MG/DL (8.5-10.1); Potassium 4.8 MMOL/L (3.5-5.1)
[2020-10-31 07:22] LABS: Basophils % 0.2 % (0.0-0.8); Eosinophils # 0.1 10*3/uL (0.0-0.87); Eosinophils % 0.3 % (0.00-10.9); Hematocrit 29.4 VOL% (35.7-47.0); Immature Granulocytes % 1.1 %; Immature Granulocytes Absolute 0.21 #; Lymphocytes # 1.2 10*3/uL (1.4-4.0); Lymphocytes % 6.3 % (21.3-54.2); Mean Corpuscular HGB Conc 28.9 GM/DL (32-36); Mean Platelet Volume 9.2 FL (9.6-12.0); Monocytes % 9.6 % (1.7-12.7); Neutrophils % 82.5 % (38.7-73.9); Platelet Count 410 T/CUMM (130-400); Red Blood Count 3.77 MC/CUMM (3.8-5.5); Red Cell Distribution Width 18.3 % (9.3-17.3); White Blood Count 18.4 T/CUMM (4-12)
[2020-10-31 07:23] LABS: Hemoglobin 8.5 GM/DL (12.0-16.0)
[2020-10-31 07:28] LABS: Hypochromasia 1+; Microcytosis 1+; Platelet Estimate Adequate
[2020-10-31] MEDS: ASPIRIN CHEW 81 MG TABLET PO SCH (09:26)
[2020-10-31] MEDS: MULTIVITAMIN (CENTRUM) TABLET PO SCH (09:26)
[2020-10-31] MEDS: FERROUS SULFATE 325 MG TABLET PO SCH ×3 (09:26→17:10)
[2020-10-31] MEDS: ZINC GLUCONATE 50 MG TABLET PO SCH (09:27)
[2020-10-31] MEDS: OXYBUTYNIN 5 MG TABLET PO SCH (09:27)
[2020-10-31] MEDS: RANOLAZINE 500 MG TABLET PO SCH ×2 (09:27→20:29)
[2020-10-31] MEDS: CETIRIZINE 5 MG TABLET PO SCH (09:27)
[2020-10-31] MEDS: amLODIPine 5 MG TABLET PO SCH (09:27)
[2020-10-31] MEDS: DOCUSATE SODIUM 100 MG CAPSULE PO SCH (09:27)
[2020-10-31] MEDS: FLUCONAZOLE INJ 200 MG in PREMIX 1 EACH IV SCH (09:45)
[2020-10-31] MEDS: DEXAMETHASONE 4 MG/1 ML VIAL IV SCH (09:47)
[2020-10-31] MEDS: PANTOPRAZOLE 40 MG VIAL IV SCH (09:47)
[2020-10-31] MEDS: hydrALAZINE 20 MG/1 ML VIAL IV PRN (09:48)
[2020-10-31] MEDS: DORNASE ALFA 2.5 MG/2.5 ML VIAL RESP TX SCH ×2 (11:28→20:02)
[2020-10-31] MEDS: ENOXAPARIN 30 MG/0.3 ML SYRINGE SUBCUT SCH (12:55)
[2020-10-31] MEDS: TRACE ELEMENTS (5) 1 ML, MULTIVITAMIN INJ 10 ML in AMINO ACIDS/DEXT/LYTES 4.25-5% 2,000 ML IV SCH (17:20)
[2020-11-01] MEDS: ALBUTEROL/IPRATROPIUM 3 ML NEB RESP TX SCH ×6 (02:25→23:51)
[2020-11-01 05:15] LABS: Basophils % 0.1 % (0.0-0.8); Eosinophils # 0.1 10*3/uL (0.0-0.87); Eosinophils % 0.4 % (0.00-10.9); Hematocrit 29.6 VOL% (35.7-47.0); Hemoglobin 8.6 GM/DL (12.0-16.0); Immature Granulocytes Absolute 0.16 #; Lymphocytes # 1.2 10*3/uL (1.4-4.0); Lymphocytes % 7.3 % (21.3-54.2); Mean Corpuscular HGB Conc 29.1 GM/DL (32-36); Mean Corpuscular Volume 76.7 FL (87-102); Monocytes % 9.8 % (1.7-12.7); Neutrophils % 81.4 % (38.7-73.9); Platelet Count 419 T/CUMM (130-400); Red Blood Count 3.86 MC/CUMM (3.8-5.5); Red Cell Distribution Width 18.6 % (9.3-17.3); White Blood Count 16.4 T/CUMM (4-12)
[2020-11-01] MEDS: CLINDAMYCIN INJ 600 MG in PREMIX 1 EACH IV SCH ×4 (05:21→22:53)
[2020-11-01 05:37] LABS: Calcium 10.2 MG/DL (8.5-10.1); Osmolality,Calculated 274.2 MOS/KG (273-304); Potassium 4.8 MMOL/L (3.5-5.1)
[2020-11-01] MEDS ORDERED: LIDOCAINE 2% 20 ML VIAL RESP TX ONE (07:30)
[2020-11-01] MEDS ORDERED: LIDOCAINE 2% VISCOUS 100 ML BOTTLE SWISH/SPIT ONE (07:30)
[2020-11-01] MEDS ORDERED: LIDOCAINE 1% 20 ML VIAL MISC INJ ONE (07:30)
[2020-11-01] MEDS: DORNASE ALFA 2.5 MG/2.5 ML VIAL RESP TX SCH ×2 (08:06→19:49)
[2020-11-01] MEDS: FERROUS SULFATE 325 MG TABLET PO SCH ×3 (09:42→18:11)
[2020-11-01] MEDS: ASPIRIN CHEW 81 MG TABLET PO SCH (09:42)
[2020-11-01] MEDS: DOCUSATE SODIUM 100 MG CAPSULE PO SCH (09:43)
[2020-11-01] MEDS: MULTIVITAMIN (CENTRUM) TABLET PO SCH (09:43)
[2020-11-01] MEDS: ZINC GLUCONATE 50 MG TABLET PO SCH (09:43)
[2020-11-01] MEDS: OXYBUTYNIN 5 MG TABLET PO SCH (09:43)
[2020-11-01] MEDS: CETIRIZINE 5 MG TABLET PO SCH (09:43)
[2020-11-01] MEDS: RANOLAZINE 500 MG TABLET PO SCH ×2 (09:43→22:52)
[2020-11-01] MEDS: FAT EMULSION 20% 250 ML IV SCH ×2 (13:01→20:53)
[2020-11-01] MEDS: DEXAMETHASONE 4 MG/1 ML VIAL IV SCH (15:34)
[2020-11-01] MEDS: PANTOPRAZOLE 40 MG VIAL IV SCH (15:41)
[2020-11-01] MEDS: ENOXAPARIN 30 MG/0.3 ML SYRINGE SUBCUT SCH (15:45)
[2020-11-01] MEDS: FLUCONAZOLE INJ 200 MG in PREMIX 1 EACH IV SCH (15:45)
[2020-11-01] MEDS: TRACE ELEMENTS (5) 1 ML, MULTIVITAMIN INJ 10 ML in AMINO ACIDS/DEXT/LYTES 4.25-5% 2,000 ML IV SCH (20:53)
[2020-11-02] MEDS: ALBUTEROL/IPRATROPIUM 3 ML NEB RESP TX SCH ×3 (03:20→14:40)
[2020-11-02] MEDS: CLINDAMYCIN INJ 600 MG in PREMIX 1 EACH IV SCH (05:26)
[2020-11-02 06:06] LABS: Basophils % 0.1 % (0.0-0.8); Eosinophils % 0.1 % (0.00-10.9); Hematocrit 28.5 VOL% (35.7-47.0); Hemoglobin 8.3 GM/DL (12.0-16.0); Immature Granulocytes % 1.2 %; Immature Granulocytes Absolute 0.17 #; Lymphocytes # 0.8 10*3/uL (1.4-4.0); Lymphocytes % 5.6 % (21.3-54.2); Mean Corpuscular HGB Conc 29.1 GM/DL (32-36); Mean Corpuscular Volume 77.4 FL (87-102); Mean Platelet Volume 9.4 FL (9.6-12.0); Monocytes % 7.7 % (1.7-12.7); Neutrophils % 85.3 % (38.7-73.9); Platelet Count 362 T/CUMM (130-400); Red Blood Count 3.68 MC/CUMM (3.8-5.5); Red Cell Distribution Width 18.1 % (9.3-17.3); White Blood Count 14.5 T/CUMM (4-12)
[2020-11-02 06:33] LABS: Calcium 10.3 MG/DL (8.5-10.1); Osmolality,Calculated 275.4 MOS/KG (273-304)
[2020-11-02] MEDS: DORNASE ALFA 2.5 MG/2.5 ML VIAL RESP TX SCH (07:45)
[2020-11-02] MEDS: ZINC GLUCONATE 50 MG TABLET PO SCH (08:24)
[2020-11-02] MEDS: DOCUSATE SODIUM 100 MG CAPSULE PO SCH (08:24)
[2020-11-02] MEDS: RANOLAZINE 500 MG TABLET PO SCH (08:24)
[2020-11-02] MEDS: FERROUS SULFATE 325 MG TABLET PO SCH ×2 (08:24→11:35)
[2020-11-02] MEDS: ASPIRIN CHEW 81 MG TABLET PO SCH (08:24)
[2020-11-02] MEDS: CETIRIZINE 5 MG TABLET PO SCH (08:24)
[2020-11-02] MEDS: MULTIVITAMIN (CENTRUM) TABLET PO SCH (08:24)
[2020-11-02] MEDS: OXYBUTYNIN 5 MG TABLET PO SCH (08:24)
[2020-11-02] MEDS: DEXAMETHASONE 4 MG/1 ML VIAL IV SCH (09:44)
[2020-11-02] MEDS: PANTOPRAZOLE 40 MG VIAL IV SCH (09:45)
[2020-11-02] MEDS: FLUCONAZOLE INJ 200 MG in PREMIX 1 EACH IV SCH (09:45)
[2020-11-02 11:17] VITALS: BP 127/58
[2020-11-02] MEDS: ENOXAPARIN 30 MG/0.3 ML SYRINGE SUBCUT SCH (11:35)
[2020-11-03] MEDS ORDERED: NITROGLYCERIN 0.1 MG/HR PATCH TRANSDERM SCH (09:00)
== END 2020-11-02 13:50 | disposition hospice, home (50) | DRG 177 ==
LOC: N.ED 07:28 → SUATTDRO 10:59 → N.EDINP 10:59 → N.3E 16:02
PROVIDERS: ADMIT Emergency Medicine; ATTEND Internal Medicine